=== PATIENT | male | born 1975 | race Caucasian/White ===

== ENCOUNTER 2017-03-02 13:43 | Emergency (ER) | payer SELFPAY ==
[~2017-03-02] VITALS: Ht 167.6 cm; Wt 70.0 kg
[2017-03-02 13:45] VITALS: BP 137/67; PULSE 95; RESP 16; TEMP 98.9; O2SAT 97
--- NOTE | 2017-03-02 14:43 | RADRPT ---
EXAM DATE/TIME: 03/02/2017 14:12 [place] COMPARISON: No previous studies available for comparison. INDICATIONS : Upper right chest pain. Patient states he fell down a flight of stairs. MEDICAL HISTORY : None. SURGICAL HISTORY : None. ENCOUNTER: Initial ACUITY: 1 day PAIN SCORE: 10/10 LOCATION: Bilateral chest FINDINGS: PA and lateral views of the chest demonstrate the lungs to be symmetrically aerated without evidence of infiltrate or effusion. There is a calcified granuloma at the left upper lung. The cardiomediastin al contours are unremarkable. Osseous structures are intact. Bilateral nipple piercings are present. CONCLUSION: Normal examination. Tan Hou MD on March 02, 2017 at 14:40 Board Certified Radiologist. This report was verified electronically.
[2017-03-02] MEDS ORDERED: TRAM50TA PO (15:18)
--- NOTE | 2017-03-02 15:25 | PD ---
HPI Chief Complaint: Injury Time Seen by Provider: 15:05 Travel History International Travel<30 days: No Contact w/Intl Traveler<30days: No Traveled to known affect area: No History of Present Illness HPI 41-year-old male presents to the emergency room for evaluation of right anterior rib pain after falling last night. Patient states he was "wasted" when he fell down 5 feet. States he landed directly on his right rib cage. He denies hitting his head or loss of consciousness. Denies neck or back pain. His girlfriend is with him and witnessed the fall. States he had no other injuries. He was able to get up immediately and walk back to the room. States this morning when he woke up, after lying in one spot for a long time, he had extreme pain in the right anterior rib cage. Pain is worsened with certain range of motion and with deep breathing. He has no shortness of breath or difficulty breathing. He took 800 mg ibuprofen with moderate relief in symptoms. No chronic medical conditions or daily medications. [facility] Past Medical History Medical History: Denies Significant Hx Diminished Hearing: No Past Surgical History Surgical History: No Previous Surgery Social History Alcohol Use: No Tobacco Use: No Substance Use: No Allergies-Medications (Allergen,Severity, Reaction): Coded Allergies: No Known Allergies (Unverified , 03/02/17) Reported Meds & Prescriptions Reported Meds & Active Scripts Active Tramadol (Tramadol HCl) 50 Mg Tab 50 Mg PO Q8H PRN Review of Systems Except as stated in HPI: all other systems reviewed are Neg Physical Exam Narrative GENERAL: Well-nourished, well-developed male in no acute distress. Afebrile. Ambulatory. SKIN: Focused skin assessment warm/dry. HEAD: Normocephalic. EYES: No scleral icterus. No injection or drainage. NECK: Supple, trachea midline. No JVD or lymphadenopathy. No midline tenderness. CARDIOVASCULAR: Regular rate and rhythm without murmurs, gallops, or rubs. RESPIRATORY: Breath sounds equal bilaterally. No accessory muscle use. CHEST: Extreme tenderness to palpation of the right anterior ribs #7 and 8. No deformity or crepitus. No retractions or use of accessory muscles. BACK: No CVA tenderness. No rash. No point tenderness on palpation of the spine. Data Data Last Documented VS Vital Signs Date Time Temp Pulse Resp B/P (MAP) Pulse Ox O2 Delivery O2 Flow Rate FiO2 03/02/17 13:45 98.9 95 16 137/67 (90) 97 Orders Orders Chest, Pa & Lat (03/02/17 ) Ed Discharge Order (03/02/17 15:18) Resp Incentive Spirometry (03/02/17 ) MDM Medical Decision Making Medical Screen Exam Complete: Yes Emergency Medical Condition: Yes Medical Record Reviewed: Yes Differential Diagnosis Fracture, contusion, pneumothorax, abrasion, strain Narrative Course 41-year-old male presents to the emergency room for evaluation of right anterior rib pain after trip and fall last night. Patient states he was extremely drunk when he fell about 5 feet landing directly on his right rib cage. He denies any other injuries. Fall was witnessed and his preference states he was fine and able to get up right away. Patient denies headache, neck pain, or back pain at this time. He denies shortness of breath or difficulty breathing. States pain is worsened with deep breathing. Patient is resting comfortably with no increased work of breathing. There is extreme tenderness to palpation of ribs #7 and 8. No crepitus. Lung sounds clear and equal bilaterally. 97% on room air. Chest x-ray is negative. Likely rib contusion. Patient given incentive spirometer. Told to take Motrin and terminal for pain. Told to follow up with the PCP or return for worsening symptoms. He understands and agrees to plan. Diagnosis Primary Impression: Contusion of rib on right side Qualified Codes: S20.211A - Contusion of right front wall of thorax, initial encounter Referrals: Primary Care Physician Additional Instructions: Use incentive spirometer as directed to prevent pneumonia. Take tramadol as directed, as needed for pain. Do not drink alcohol or drive while taking this medication. Take ibuprofen with food as directed, as needed for pain. Apply ice to the affected area for 20 minutes at a time, as needed for pain and swelling. Follow-up with a primary care physician. Return to the emergency room for worsening symptoms. Med/Other Pt SpecificInfo: Prescription(s) given Scripts Tramadol (Tramadol) 50 Mg Tab 50 MG PO Q8H Y for PAIN, #12 TAB 0 Refills Prov: Maria Guadalupe Giraldo MD 03/02/17 Disposition: 01 DISCHARGE HOME Condition: Stable Aimee Sanon Mar 02, 2017 15:25
== END 2017-03-02 15:38 | disposition home or self-care (01) ==
LOC: NEPK 13:43
DX: S20.211A Contusion of right front wall of thorax, initial encounter (principal); W17.89XA Other fall from one level to another, initial encounter
CPT/HCPCS: 71020; 99283